=== PATIENT | female | born 1955 | race Caucasian/White ===

== ENCOUNTER → 2023-05-30 12:51 | Outpatient (REF) | payer OTHER, SELFPAY | LOC: DHCBS HW 12:51 | PROVIDERS: ATTENDING PHYSICIAN Nuclear Medicine Nuclear Cardiology; FAMILY PHYSICIAN Family Medicine | DX: I34.1 Nonrheumatic mitral (valve) prolapse (principal); R07.9 Chest pain, unspecified; R00.2 Palpitations; Z82.49 Family history of ischemic heart disease and other diseases of the circulatory system; E78.2 Mixed hyperlipidemia | CPT/HCPCS: 93306 ==

== ENCOUNTER → 2023-06-07 08:32 | Outpatient (REF) | payer MEDICARE, SELFPAY | LOC: RCS 08:32 | PROVIDERS: ATTENDING PHYSICIAN Nuclear Medicine Nuclear Cardiology; FAMILY PHYSICIAN Family Medicine | DX: I34.1 Nonrheumatic mitral (valve) prolapse (principal); R07.9 Chest pain, unspecified; R00.2 Palpitations; Z82.49 Family history of ischemic heart disease and other diseases of the circulatory system; E78.2 Mixed hyperlipidemia | CPT/HCPCS: 93017; 93350 ==

== ENCOUNTER → 2023-06-16 12:18 | Outpatient (REF) | payer MEDICARE, SELFPAY | LOC: HWRAD 12:18 | PROVIDERS: ATTENDING PHYSICIAN Otolaryngology; FAMILY PHYSICIAN Family Medicine | DX: R09.82 Postnasal drip (principal) | CPT/HCPCS: 70486 ==

== ENCOUNTER → 2023-07-21 14:41 | Outpatient (REF) | payer MEDICARE, SELFPAY | LOC: WDC 14:41 | PROVIDERS: ATTENDING PHYSICIAN Family Medicine | DX: Z12.39 Encounter for other screening for malignant neoplasm of breast (principal); M85.80 Other specified disorders of bone density and structure, unspecified site; Z12.31 Encounter for screening mammogram for malignant neoplasm of breast | CPT/HCPCS: 77063; 77067 ==

== ENCOUNTER 2023-07-26 16:20 | Emergency (ER) | payer MEDICARE, SELFPAY ==
[2023-07-26 16:29] VITALS: BP 155/91
--- NOTE | 2023-07-26 17:00 | ED.GENMED ---
History of Present Illness
General
Chief Complaint: Head Injury
Source: patient
Exam Limitations: none
Time Seen by Provider: 07/26/23 16:53
Travel History
Have you had any contact with someone who has COVID-19?: No
Do you have any symptoms of coronavirus? Fever > 100 degrees, chills, cough, shortness of breath, sore throat, loss of taste or smell, muscle aches, or headache?: No
History of Present Illness
History of Present Illness:
See MDM
Past History
Past History
ED Past Medical History: None
ED Past Surgical History: Orthopedic
Social History
Tobacco: Non-smoker
Alcohol: None
Phy Exam
Physical Exam
Physical Exam:
See MDM
Course
Orders/Labs/Results
Orders:
Orders
07/26/23 16:34
CT Head W/o Iv Contrast Urgent
Comment:
Reason For Exam: fall landing on head
Vital Signs
Initial and Last Documented VS:
Initial Vital Signs
Temp Pulse Resp BP Pulse Ox
98.1 F 84 20 155/91 98
07/26/23 16:29 07/26/23 16:29 07/26/23 16:29 07/26/23 16:29 07/26/23 16:29
Last Documented Vital Signs
Temp Pulse Resp BP Pulse Ox
98.1 F 84 20 155/91 98
07/26/23 16:29 07/26/23 16:29 07/26/23 16:29 07/26/23 16:29 07/26/23 16:29
MDM/Problems Addressed
Differential Diagnosis Includes:
HPI and MDM Narrative:
67-year-old female presenting with head injury. Patient was on a small stepstool and she slipped and fell backward hitting her head. No loss of consciousness. She denies neck pain.
On exam, she is well-appearing nontoxic. There is a palpable scalp hematoma to right parietal scalp. Given age and trauma, will obtain CT
Physical exam
General: Well appearing and non-toxic
HEENT: protecting airway. Small right parietal scalp hematoma
Neck: Nontender, supple
CV: No evidence of cyanosis
Resp: No accessory muscle use
Abd: Non-distended
Extremities: No deformities
Neuro: alert
Psych: Normal affect
Skin: Intact
Problems Addressed including Acute and Chronic Conditions affecting care:
1. Head injury
Acuity: acute
Prognosis: stable
Details: Given the fall and hematoma, will obtain CT to rule out hemorrhage versus fracture
Updates
CT head negative. Discussed return precautions
Differential Diagnosis (but not limited to): Scalp hematoma, fracture, intracranial
Testing considered: CT neck but it is nontender
Drug therapy (if applicable): OTC meds, please see d/c instruction regarding Rx drugs
Amount and/or Complexity of Data Reviewed
Clinical info obtained from: Patient
External data reviewed: N/A
Labs I independently reviewed (but not limited to): N/A
Radiology: The CT scan was personally and independently reviewed. In addition, official CT report reviewed.
Pulse Ox: not hypoxic
EKG independently reviewed: N/A
Percolator Operator: N/A
Critical Care: N/A
Risk of Complication:
Social Determinants of health: Good social support
Discussed with other providers: N/A
Escalation of Care includes Admit/Obs: After being observed in the Emergency Department, pt stable for discharge.
Occasional wrong word or 'sound a like' substitutions may have occurred due to the inherent limitations of voice recognition software. Read the chart carefully and recognize, using context, where substitutions have occurred.
*Critical Care Note
Total Time (30-74mins, 75-104mins- exclusive of procedures): Not Applicable
ED Attending Note
-
Portions of this chart may have been created with voice recognition software.� Occasional wrong word or��sound alike� substitutions may have occurred due to the inherent limitations of voice recognition software.
Discharge Plan
Departure
Patient Disposition: Home (Routine Discharge)
Date of Disposition: 07/26/23
Time of Disposition: 18:45
Patient with high blood pressure during this ER visit?: Yes
Discharge Problem:
Head injury
Instructions: Head Injury in Adults (DC), BLOOD PRESSURE
Prescriptions:
No Action
ibuprofen 800 MG tablet
800 mg PO Q6HPRN PRN (Reason: pain)
omeprazole 20 MG capsule,delayed release(DR/EC)
20 mg PO DAILY
cholecalciferol (vitamin D3) [Vitamin D3] 400 UNITS tablet
1,000 units PO DAILY
Metamucil:
3 cap PO DAILY
sucralfate [Carafate] 100 mg/mL suspension
10 ml PO QID Qty: 200 0RF
Referrals:
Kendell Monterroso DO [Family Provider] -
Activity Restrictions/Additional Instructions:
Please return for any worsening symptoms.
You may return at any time if you have further concerns.
Please follow up with your doctor at the first available appointment, preferably this week.
Thank you for choosing [facility].
Interventions
Interventions:
ED- Neurological Assessment Last Done: 07/26/23 16:51
ED-Skin Assessment Last Done: 07/26/23 16:51
Discharge Date and Time
Print Language: [place]
== END 2023-07-26 19:08 | disposition home or self-care (01) ==
LOC: EMR 16:20
PROVIDERS: EMERGENCY PHYSICIAN Student in an Organized Health Care Education/Training Program; FAMILY PHYSICIAN Family Medicine
DX: S09.90XA Unspecified injury of head, initial encounter (principal); W19.XXXA Unspecified fall, initial encounter
CPT/HCPCS: 99284; 70450

== ENCOUNTER → 2024-10-24 16:45 | Outpatient (REF) | payer MEDICARE, SELFPAY | LOC: WDC 16:45 | PROVIDERS: ATTENDING PHYSICIAN Family Medicine | DX: Z12.39 Encounter for other screening for malignant neoplasm of breast (principal); Z12.31 Encounter for screening mammogram for malignant neoplasm of breast | CPT/HCPCS: 77063; 77067 ==

== ENCOUNTER 2024-12-04 06:24 | Day surgery (SDC) | payer MEDICARE, SELFPAY | END 2024-12-04 11:48 | disposition home or self-care (01) | LOC: GI 06:24 | PROVIDERS: ATTENDING PHYSICIAN Internal Medicine; FAMILY PHYSICIAN Family Medicine | DX: Z12.11 Encounter for screening for malignant neoplasm of colon (principal); D50.9 Iron deficiency anemia, unspecified; K57.30 Diverticulosis of large intestine without perforation or abscess without bleeding; K31.811 Angiodysplasia of stomach and duodenum with bleeding; Q40.2 Other specified congenital malformations of stomach; K63.5 Polyp of colon; K29.50 Unspecified chronic gastritis without bleeding; K63.89 Other specified diseases of intestine | CPT/HCPCS: 43255; 43239; 45380; 88305; 88342 ==

== ENCOUNTER 2025-01-24 12:54 | Outpatient (RCR) | payer MEDICARE, SELFPAY ==
[2025-01-10] MEDS: VENOFER 110 MG IV (13:25)
[2025-01-10 13:39] VITALS: BP 131/74
[2025-01-10 14:33] VITALS: BP 126/72
[2025-01-17] MEDS: VENOFER 110 MG IV (13:19)
[2025-01-17 13:28] VITALS: BP 138/66
[2025-01-17 14:28] VITALS: BP 127/70
[2025-01-24] MEDS: VENOFER 110 MG IV (13:30)
[2025-01-24 13:38] VITALS: BP 121/67
[2025-01-24 14:55] VITALS: BP 128/55
== END 2025-02-03 23:59 | disposition home or self-care (01) ==
LOC: OID 12:54
PROVIDERS: ATTENDING PHYSICIAN Internal Medicine; FAMILY PHYSICIAN Family Medicine
DX: D50.9 Iron deficiency anemia, unspecified (principal); K92.2 Gastrointestinal hemorrhage, unspecified; K90.0 Celiac disease
CPT/HCPCS: 96365; J1756